=== PATIENT | male | born 1965 | race Caucasian/White ===

== ENCOUNTER → 2016-10-17 | Outpatient (CLI) | payer MEDICARE | LOC: NM 10-16 08:30 | DX: M79.606 Pain in leg, unspecified (principal); I25.10 Atherosclerotic heart disease of native coronary artery without angina pectoris; I20.8 Other forms of angina pectoris; R06.02 Shortness of breath; R23.8 Other skin changes; I73.9 Peripheral vascular disease, unspecified | CPT/HCPCS: ECHO; 78452; 93017; 93306; 93925; A9502; J2785 ==

== ENCOUNTER → 2020-09-20 | Outpatient (CLI) | payer OTHER ==
[~2020-09-20] MED LIST: ASPIR-LOW81 MG PO; ATORVASTATIN CA20 MG PO; AUGMENTIN 875-1 EACH PO; CLEOCIN HCL150 MG PO; DEX4 GLUCOSE4 GM PO; ENOXAPARIN40 MG/0.4 SC; FLOMAX 0.4 MG0.4 MG PO; GABAPENTIN800 MG PO; HUMALOG 10100 UNITS/ SC; HUMALOG MI100 UNIT/2 SQ; HYDROCODON-ACE1 EAC4 PO; KEFLEX CAP 500500 MG PO; LANTUS100 UNIT/1 SC; LEVEMIR 10100 UNITS/ SQ; LEVOFLOXACIN250 MG PO; LISINOPRIL10 MG PO; LOPRESSOR50 MG PO; MOBIC15 MG PO; NEURONTIN 300300 MG PO; NEURONTIN800 MG PO; NORCO 5-325 TA1 EACH PO; NORCO 7.5-3251 EACH PO; NOVOLOG 10100 UNITS/ SQ; NOVOLOG 10100 UNITS1 SC; ORAZINC PO; PERCOCET 5/325 T1 EA PO; PLAVIX 75 MG TA75 MG PO; TYLENOL 325MG325 MG PO; VANCOMYCIN HCL1 GM IV; VITAMIN C 500500 MG PO; ZYVOX 600 MG T600 MG PO; ZYVOX600 MG PO; vancomycin
== END ==
LOC: KOH-I 13:54
DX: M79.672 Pain in left foot (principal); M79.671 Pain in right foot; M19.072 Primary osteoarthritis, left ankle and foot; M19.071 Primary osteoarthritis, right ankle and foot; Z98.890 Other specified postprocedural states
CPT/HCPCS: 73630